=== PATIENT | male | born 1950 | race American Indian/Alaskan Native ===

== ENCOUNTER 2017-11-26 08:29 | Outpatient (CLI) | payer MEDICARE, OTHER ==
--- NOTE | 2017-12-01 12:56 | Magnetic Resonance Report ---
MR angiography is performed of the great vessels of the neck 2-D time of flight spoiled grass images were obtained of the great vessels of the neck. Images of the carotid circulation showed both carotids to be patent without any evidence of occlusive disease. The vertebral arteries well seen and were unremarkable. Impression: Normal MR angiography of the cervical circulation.
--- NOTE | 2017-12-01 13:03 | Magnetic Resonance Report ---
MR scan of the cranium was performed without contrast. Pulse sequences included: 1. T1 weighted sagittal and axial images without contrast 2. T2 weighted images 3. FLAIR axial and coronal images 4. Diffusion-weighted axial images 5. Apparent diffusion coefficient images Views of the posterior fossa showed a normal craniocervical junction. Cerebellar pontine angles were normal with normal seventh-eighth nerve complexes. Brainstem and cerebellum were normal. The ventricular system showed no dilatation or distortion. Images of the hemispheres showed multiple areas of increased signal within the nicole radiata consistent with araiosis. Sinuses showed a left maxillary sinus mucus retention cyst. Flow voids in the [place], orbits, pituitary and basal ganglia were normal. Impression: Mildly abnormal MR scan of the cranium without contrast 1. left maxillary sinus mucus retention cyst 2. white matter araiosis
--- NOTE | 2017-12-01 13:05 | Magnetic Resonance Report ---
MR angiogram was performed of the intracranial circulation 3-D [id number] spoiled grass images were obtained of the intracranial circulation. The images of the carotid arteries showed no areas of occlusion or aneurysmal dilatation. The vertebral basilar system was also patent without any evidence of occlusive disease. there was some irregularity in the middle cerebral, anterior cerebral and posterior cerebral arteries consistent with atherosclerotic disease but without significant occlusion. Impression: Mildly abnormal MR angiogram of the intracranial circulation 1. irregularity in the intracranial vessels most likely due to atherosclerosis
== END 2017-11-26 08:30 | disposition home or self-care (01) ==
LOC: MRI 08:29
PROVIDERS: ATTEND Specialist
DX: J34.1 Cyst and mucocele of nose and nasal sinus (principal); R90.82 White matter disease, unspecified; R51 Headache
CPT/HCPCS: 70544; 70547; 70551